=== PATIENT | male | born 1940 | race Caucasian/White ===

== ENCOUNTER 2016-02-12 09:51 | Inpatient (IN) ==
[2016-02-12] MEDS ORDERED: NITROSTAT SL PRN (10:50)
[2016-02-12] MEDS ORDERED: PERCOCET 5-325 PO PRN (10:54)
[2016-02-12 12:08] VITALS: BMI 24.3
[2016-02-12] MEDS: HUMULIN R SUBCUT PRN (12:46)
[2016-02-12] MEDS ORDERED: ACEBUTOLOL HCL 200 MG PO SCH (15:00)
[2016-02-12] MEDS: SECTRAL PO SCH ×2 (15:42→21:04)
[2016-02-12] MEDS: GLUCOPHAGE PO SCH (17:40)
[2016-02-12] MEDS: ASPIRIN EC PO SCH (17:40)
[2016-02-12] MEDS ORDERED: ASPIRIN CHEWABLE PO SCH (21:00)
[2016-02-12] MEDS: FERROUS SULFATE PO SCH (21:04)
[2016-02-13] MEDS: HUMULIN R SUBCUT PRN ×3 (06:21→17:32)
[2016-02-13] MEDS ORDERED: CHOLECALCIFEROL 1000 UNIT PO SCH (09:00)
[2016-02-13] MEDS: ASPIRIN EC PO SCH ×2 (09:03→17:32)
[2016-02-13] MEDS: FERROUS SULFATE PO SCH ×2 (09:03→21:20)
[2016-02-13] MEDS: VITAMIN D PO SCH (09:04)
[2016-02-13] MEDS: CELEXA PO SCH (09:04)
[2016-02-13] MEDS: GLUCOPHAGE PO SCH ×2 (09:04→17:32)
[2016-02-13] MEDS: SECTRAL PO SCH ×3 (09:04→21:20)
[2016-02-13] MEDS: COLACE PO SCH (09:04)
--- NOTE | 2016-02-13 11:27 | RS.PTINEVL ---
Subjective - Patient information Date of Evaluation: 02/13/16 Date of Arrival on Unit: 02/12/16 Admitted From:: Home Usual Living Arrangement: With Spouse Living Arrangement Comments: Pt lives at home with his . Patient has 4 steps to enter the home and does not have a rail. Patient has a rollator walker at home. Home Environment: House, Stairs (few) Surgical History: Knee Replacement Surgical History Comments:: Partial knee replacement on 02/03/2016 Subjective Information/ Patient Comments:: I am doing better now that I am here and have help. - Level of function Prior to this admission, the patient could do the following:: Independent Selfcare, Independent ADL's, Independent Ambulation, Perform Geriatric Physical Therapist/ Cooking, Drive, Participated in Social Activities Outside home, Volunteer/Work Current Level of Function: Dependent Current Equipment Used at Home: FWW Pain Assessement - Location Right Knee Description: Tightness, Acute Intensity: 0 (At rest and with pain medication) Pain Aggravating Factors: ADL's, Exercise/Activity, Standing, Walking, Stair Climbing Pain Alleviating Factors: Medication, Inactivity Effects of Pain: Right knee pain causes instability, higher fall risk when WBing Interventions - Objective Patient Orientation: Person, Place, Time, Situation Observation: Anterior right knee surgical scar present with avelino present. He has errythema present surrounding the incision and it is minimally warm but does not look infected at this time. Range of Motion - ROM Right Lower Extremity AROM: Moderate limitation (Right knee AROM in sitting -15 to 93 degrees.) Muscle Strength - Muscle Strength Right Lower Extremity Strength: Mild Weakness (Right hip and knee gross strength 4/5) Left Lower Extremity Strength: Normal Sensation - Sensation Right Lower Extremity Sensation: Intact/Normal Palpation Palpation Findings: Tenderness (Throughout the right knee region.) Balance - Standing Balance and Reactions Static Standing Balance: Fair Dynamic Standing Balance: Fair Standing Protective Reactions: Delayed Left (Patient requires close SBA to CGA at all times due to fall hx at home and current instability in the right knee joint.), Delayed Right Functional Mobility - Bed Mobility Rolling R/L: Not Tested Scooting: Supervision, Verbal Cues Supine to Sit: Supervision, Verbal Cues Sit to Supine: Supervision, Verbal Cues - Transfers Sit to Stand: CGA, Min Assist, Verbal Cues Stand to Sit: CGA, Verbal Cues Stand Pivot Transfers: CGA, Verbal Cues - Safety Awareness Safety Awareness: Fair (Patient requires close supervision and frequent VCs due to decreased safety technique and task sequencing at times.) Ambulation - Ambulation Weight Bearing Status: WBAT Assistive Device Used: Rolling Walker Orthotic/Prosthetic Device: No Distance: 120' Assistance needed with Ambulation: CGA, 1 person assist, Verbal Cues Gait Deviations: Shuffling gait, Forward posture Factors Affecting Ambulation: Weakness, Decreased ROM, Decreased Safety ( Decreased step length on left with uneven stride and right knee flexion even during stance phase.) Treatment time - Units charged Gait trainin (with FWW and CGA wtih VCs as previously stated.) - Time with patient Total treatment time: 15 Patient Education - Education Patient Education: Body/Joint mechanics, Education of Plan of Care Teaching Recipient: Patient Teaching Methods: Discussion Assessment - Assessment Problem List:: Decreased level of function, Requires training/education, Decreased safety/Risk of falls, Weakness, Pain limits previous level of function Rehab Potential: Good Further Therapy Indicated?: Yes Short Term Goals GOAL #1: Supine to sit independently. Goal to be met by: 02/19/16 GOAL #2: Standing balance fair+ to good- with FWW Goal to be met by: 02/19/16 GOAL #3: Sit to stand with good safety with SBA of one. Goal to be met by: 02/19/16 Shelter Goals GOAL #1: All bed mobility independent. Goal to be met by: 02/25/16 GOAL #2: Transfers independently with good safety. Goal to be met by: 03/24/16 GOAL #3: Amb. with RW household distances with good safety, independently. Goal to be met by: 02/25/16 Plan Plan of Care: Therapeutic EX, Neuromuscular Re-Educ, Therapeutic Activity, Self- Care/Home Management Frequency of Treatment: 1-2 X day, as tolerated Duration of Treatment: 2 Weeks Anticipated Discharge Destination: Home
[2016-02-13 17:55] LABS: BASOPHILS % (AUTO) 0.6 % (0.0-3.0); EOSINOPHILS # (AUTO) 0.2 K/ul (0.0-0.7); EOSINOPHILS % (AUTO) 3.5 % (0.0-7.0); HEMATOCRIT 37.7 % (42.0-52.0); HEMOGLOBIN 12.7 g/dl (14.0-18.0); LYMPHOCYTES # (AUTO) 1.4 K/uL (0.60-3.4); LYMPHOCYTES % (AUTO) 20.6 (10.0-50.0); MEAN CORPUSCULAR HEMOGLOBIN 29.8 pg (27.0-31.0); MEAN CORPUSCULAR HGB CONC 33.7 (31.8-35.4); MEAN CORPUSCULAR VOLUME 88.5 fl (80.0-94.0); MONOCYTES # (AUTO) 0.7 K/uL (0.4-2.0); MONOCYTES % (AUTO) 10.3 (0-10); NEUTROPHILS # (AUTO) 4.4 K/ul (2.0-6.9); PLATELET COUNT 136 10^3/uL (140-440); RED BLOOD COUNT 4.26 10^6/ul (4.70-6.10)
[2016-02-13 20:07] LABS: ADD URINE MICROSCOPIC NO; BILIRUBIN,URINE Negative (NEGATIVE); KETONES,URINE Negative (NEGATIVE); LEUKOCYTE ESTERASE ,URINE Negative (NEGATIVE); NITRITE,URINE Negative (NEGATIVE); PH,URINE 5.5 (5-9); PROTEIN,URINE Negative (NEGATIVE); URINE, BLOOD Negative (NEGATIVE)
[2016-02-14] MEDS: SECTRAL PO SCH ×3 (08:21→21:05)
[2016-02-14] MEDS: CELEXA PO SCH (08:21)
[2016-02-14] MEDS: FERROUS SULFATE PO SCH ×2 (08:21→21:05)
[2016-02-14] MEDS: GLUCOPHAGE PO SCH ×2 (08:21→16:50)
[2016-02-14] MEDS: VITAMIN D PO SCH (08:22)
[2016-02-14] MEDS: ASPIRIN EC PO SCH ×2 (08:22→16:50)
[2016-02-14] MEDS: COLACE PO SCH (08:22)
--- NOTE | 2016-02-14 09:45 | RS.OTINEVL ---
Subjective - Patient information Date of Evaluation: 02/13/16 Date of Arrival on Unit: 02/12/16 Admitted From:: Home Usual Living Arrangement: With Spouse Living Arrangement Comments: Pt lives at home with his . Patient has 4 steps to enter the home and does not have a rail. Patient has a rollator walker at home. Home Environment: House, Stairs (few) Medical History: CVA/TIA, Diabetes Medical History Comments:: Right partial knee replacement. Cdiff Surgical History: Knee Replacement Surgical History Comments:: Partial knee replacement on 02/03/2016 Subjective Information/ Patient Comments:: I need to clean up. You get all this gunk in your hair. Pt said he had not had a shower then he later said he did. 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 Current Level of Function: Partially Dependent Current Equipment Used at Home: RW, Pain Assessment - Pain Pain Score: 0 Side: right Pain Location Body Site: Knee Pain Aggravating Factors: ADL's, Exercise/Activity, Standing, Sitting Pain Alleviating Factors: Medication, Sitting Interventions - Objective Patient Orientation: Person, Place, Situation Observation: Pt has limited extension of the Right knee and edema. Patient is having decreased safety and does not always answer questions correctly. Interventions - ROM Right Upper Extremity AROM: WFL's Left Upper Extremity AROM: Slight limitation - Strength Right Upper Extremity Strength: Mild Weakness Left Upper Extremity Strength: Mild Weakness - Sensation Right Upper Extremity Sensation: Intact/Normal Left Upper Extremity Sensation: Intact/Normal Balance - Sitting Balance Static Sitting Balance: Good Dynamic Sitting Balance: Good - Standing Balance Static Standing Balance: Fair Dynamic Standing Balance: Fair ADL Skills - Self Feeding Self Feeding: Independent - Grooming Grooming: Min Assist - Bathing Bathing UE: CGA Bathing LE: CGA - Dressing Dressing UE: CGA Dressing LE: Min Assist - Toilet Management Toileting Management: Min Assist Functional Mobility - Bed Mobility Rolling R/L: Independent Scooting: Independent Supine to Sit: Independent Sit to Supine: Independent - Transfers Sit to Stand: CGA Stand to Sit: CGA Stand Pivot Transfers: Min Assist Comments:: Pt does not keep his rolling walker with him at all times when he is up and transferring to the chair. - Ambulation Weight Bearing Status: WBAT Assistive Device Used: Rolling Walker Assistance needed with Ambulation: CGA - Safety Awareness Safety Awareness: Poor Additional Treatment Performed - Additional units charged ADL: 10 - Time with patient Total treatment time: 25 Activities Patient Interests:: Watching Television Patient Education Patient Education: Education of diagnosis, Body/Joint mechanics, Home Exercise Program, Home Safety, Education of Plan of Care Teaching Recipient: Patient Teaching Methods: Discussion Assessment Problem List:: Decreased level of function, Requires training/education, Decreased safety/Risk of falls, Weakness Rehab Potential: Good Further Therapy Indicated?: Yes Short Term Goals - Goals GOAL 1: Pt to increase safety of functional transfers to Fair+ Goal to be met by: 02/21/16 Progress towards goal: Partially Met GOAL 2: Pt to be Supervision with sink level ADLS using a RW. Goal to be met by: 02/21/16 GOAL 3: Pt to increase activity tolerance to 15 minutes with rest breaks Goal to be met by: 02/21/16 Usp Goals GOAL 1: Pt to increase safety of functional transfers to Good with RW. Goal to be met by: 02/28/16 GOAL 2: Pt to increase activity tolerance to 20 minutes with rests PRN. Goal to be met by: 02/28/16 GOAL 3: Pt to be modified independent with sink level ADLS . Goal to be met by: 02/28/16 Plan Plan of Care: Therapeutic EX, Neuromuscular Re-Educ, Therapeutic Activity, Self- Care/Home Management Frequency of Treatment: 1-2 X day, as tolerated Duration of Treatment: 2 Weeks Anticipated Discharge Destination: Home
[2016-02-14] MEDS: HUMULIN R SUBCUT PRN ×2 (11:37→17:14)
[2016-02-15] MEDS: HUMULIN R SUBCUT PRN ×4 (05:45→20:03)
[2016-02-15] MEDS: ASPIRIN EC PO SCH ×2 (08:12→16:44)
[2016-02-15] MEDS: CELEXA PO SCH (08:12)
[2016-02-15] MEDS: SECTRAL PO SCH ×3 (08:12→20:04)
[2016-02-15] MEDS: FERROUS SULFATE PO SCH ×2 (08:12→20:04)
[2016-02-15] MEDS: COLACE PO SCH (08:12)
[2016-02-15] MEDS: VITAMIN D PO SCH (08:12)
[2016-02-15] MEDS: GLUCOPHAGE PO SCH ×2 (08:12→16:44)
[2016-02-16] MEDS: HUMULIN R SUBCUT PRN ×2 (05:23→12:08)
[2016-02-16 05:37] VITALS: BP 104/60; TEMP 98
[2016-02-16] MEDS: GLUCOPHAGE PO SCH (09:04)
[2016-02-16] MEDS: FERROUS SULFATE PO SCH (09:04)
[2016-02-16] MEDS: COLACE PO SCH (09:05)
[2016-02-16] MEDS: VITAMIN D PO SCH (09:05)
[2016-02-16] MEDS: CELEXA PO SCH (09:05)
[2016-02-16] MEDS: ASPIRIN EC PO SCH (09:05)
[2016-02-16] MEDS: SECTRAL PO SCH (09:05)
[2016-02-16 11:05] LABS: HEMATOCRIT 43.2 % (42.0-52.0); HEMOGLOBIN 14.5 g/dl (14.0-18.0); MEAN CORPUSCULAR HEMOGLOBIN 29.7 pg (27.0-31.0); MEAN CORPUSCULAR HGB CONC 33.6 (31.8-35.4); MEAN CORPUSCULAR VOLUME 88.5 fl (80.0-94.0); PLATELET COUNT 125 10^3/uL (140-440); RED BLOOD COUNT 4.88 10^6/ul (4.70-6.10); WHITE BLOOD COUNT 6.99 K/ul (4.2-10.2)
[2016-02-16 11:25] LABS: ALBUMIN 3.5 g/dL (3.4-5.0); ALBUMIN/GLOBULIN RATIO 1.09; ANION GAP 15.5; BILIRUBIN,TOTAL 1.41 mg/dL (0.00-1.20); BUN/CREATININE RATIO 16.92; CALCIUM 9.6 mg/dL (8.2-10.2); CREATININE 1.3 mg/dL (0.60-1.10); POTASSIUM 4.5 mmol/L (3.5-5.1); TOTAL PROTEIN 6.7 g/dL (5.8-8.1)
--- NOTE | 2016-04-03 13:31 | PN ---
DATE OF VISIT: 02/13/16 SUBJECTIVE: The patient is alert and ambulatory using a rolling walker with physical therapy. The patient does have tightness on the right knee. The patient denies any pain when he is resting, more so taking if he had taken the pain medication. Pain is triggered and aggravated by the exercises and movement as well as walking. The patient requires close observation according to the therapist and frequent visits. This is due to decreased safety technique and fast sequencing at times. The patient's color is good, not dyspneic or tachypneic and has movement of all extremities. The right knee incision has some redness along the incision lines in both sides but no drainage, no fluctuant area and no crepitus. VITAL SIGNS: Temperature 98.3, pulse 67, blood pressure 134/76, respiratory rate 18 and oxygen saturation 98% on room air. LUNGS: Clear HEART: Good tones and sinus rhythm ABDOMEN: Non-tender. EXTREMITIES: Calf muscles no remarkable tenderness. MTDD
--- NOTE | 2016-04-03 13:40 | PN ---
DATE OF VISIT: 02/14/16 SUBJECTIVE: The patient at 6:00pm on 02/14/16 is alert and oriented times 4, not dyspneic or tachypneic with no significant pain at rest. Temperature 97.7, pulse 63, blood pressure 124/77, respiratory rate 18 and oxygen saturation 96% on room air. Evaluation on 02/13/16 the patient feeds himself, grooms and also bath. The patient did ambulate with a rolling walker. Assistance was needed during the course of ambulation. Problem list was listed as decreased level of function , requires training education, decreased safety, Risks of falls because of weakness, rehab potential good and progress towards goal is partially met at this time. [facility]
--- NOTE | 2016-04-03 13:56 | PN ---
DATE OF VISIT: 02/15/16 SUBJECTIVE: The patient is alert and ambulatory with a rolling walker. VITAL SIGNS: Temperature 98.7, pulse 83, blood pressure 103/62, respiratory rate 18 and oxygen saturation 92% at room air. This patient does not have any lung complaints and this patient's previous oxygen saturation were 97 to 98%. This is probably due to placement. This patient has no symptoms referable to the pulmonary system. EXTREMITIES: No tenderness in the calf muscles. CONDITION: Stable and progressively getting better. MTDD
--- NOTE | 2016-04-03 15:03 | DS ---
DATE OF ADMISSION: 02/12/16 DATE OF DISCHARGE: 02/16/16 PATIENT IDENTIFICATION: The patient is a 75 year old male who was admitted to the hospital by the emergency room on 02/09/16 and was discharged from Acute Care 02/12/16 and then admitted into Transitional Care on the same day 02/12/16. The patient had partial right knee replacement on 02/03/16. The patient was discharged 02/07/16 and subsequent to that discharged on the same day. There was a fall with the patient striking his head against his bed. The patient since that fall had another two episodes of the same. The patient's family was very concerned of the recurrent falls and the possible consequence such as a fracture. The patient was then brought to the emergency room and after evaluation and examination and testing the patient was then admitted. HOSPITAL COURSE: The patient while in the hospital remained alert and oriented, cooperative and cheerful. LUNGS: Clear HEART: Audible and regular with good tones ABDOMEN: Non-tender EXTREMITIES: Right knee has some redness on the each side of the incision but no drainage and no fluctuation and no crepitus. The patient continued to receive rehabilitation as well as occupational. The patient seems to have improved but required more days in the hospital prior to discharge and so the patient was discharged to Acute Care and admitted to Transitional. The patient had a CBC on 02/13/16 and 02/16/16. The patient's plt count was much higher then I had obtained in the previous testing for several years. His plt count 02/13/16 was 136 and 02/16/16 was 125. CBC showed normal electrolytes, CO2 of 28 normal, BUN 22, creatinine 1.30, EGFR 54. This is lower then the Acute admission. This patient no longer has intervenous fluids. Blood sugar was 191. Total Bilirubin is 1.41 which I believe is not significant, probably secondary to non-conjugation. The rest of the chemistries were normal. Urinalysis done on 02/13/16 showed normal results. The patient continued to improve and on the day of discharge was alert and with less pain. He is not dyspneic or tachypneic and his color was good. LUNGS: Clear to auscultation. HEART: Audible and regular with good tones ABDOMEN: No tenderness. EXTREMITIES: The right knee has less swelling and less redness. Appears to have a satisfactory healing. No drainage at the incision. No significant tenderness in the calf muscles to palpation both right and left side. Upper extremities are symmetrical and equal. VITAL SIGNS: Discharge Temperature 98, pulse 71, blood pressure 104/60, respiratory rate 16, oxygen saturation 93% at room air. The patient denied any shortness of breath and no cough and no chest pain. FINAL DIAGNOSES: 1. Generalized weakness, post right partial knee replacement 2. Recurrent falls secondary to generalized weakness 3. Hypertension by history, controlled 4. Coronary artery disease, status post bypass 5. Myelodysplastic syndrome 6. Chronic Thrombocytopenia 7. Type 2, Diabetes Mellitus 8. History of COPD 9. History of Restless leg syndrome 10.Obstructive sleep apnea, diagnosed November 2013. PLAN: 1. This patient is then discharged today and following orders were given. 2. New medication Tradjenta 5mg daily elected because of the borderline renal function, Oxycodone HCL 10mg Q 6 hours PRN take one half of the Oxycodone 10mg and see if this relieves the problem every 6 hours if not can take a full one. 3. Should resume his Acebutolol, Aspirin, Vitamin D, Celexa, Docusate, Ferrous Sulfate and Nitroglycerin sublingually PRN. 4. He is advised to see me 02-21-16 at 2:00pm at the office. 5. Keep the appointment with Dr. Cameron 03/01/16 at 8:10am. 6. Resume medications. 7. Discontinue Glucophage. 8. The patient is to return for continued rehabilitation at [facility]. The patient should do the activities prescribed by Dr. Cameron. 9. Continue to ambulate more frequently at home. 10. Elevate the leg at level of the heart or better above the heart level. MTDD
--- NOTE | 2016-04-04 13:00 | HP ---
BRIEF HISTORY FOR TRANSITIONAL CARE ADMISSION FROM ACUTE. DISCHARGED 02/12/16 AND ADMITTED 02/12/16 TO TRANSITIONAL CARE CHIEF COMPLAINT: Need for continued rehabilitation therapy, as well as occupational. HISTORY OF PRESENT ILLNESS: The patient was admitted to the hospital 02/09/16 because of progressive weakness beginning the day after surgery 02/04/2016. He was discharged 02/07/2016 and subsequent to that discharge had a fall hitting his head on his bed. This patient had a CT scan of the head with no remarkable abnormalities. CT scan of the neck without contrast showed degenerative joint disease. No fracture. Chest x-ray with some abnormalities, but not acute. The patient had a serial CBC and CMP. The cardiac enzymes were normal. The patient at discharge was alert and ambulatory with the use of a walker. He is going to continue rehabilitation, as well as occupational therapy. Past personal history, family history, social history, medication, refer to admission of 02/09/2016. PHYSICAL EXAMINATION: LUNGS: Clear to auscultation in both sides. No rales. HEART: Audible with good tones and mostly regular. ABDOMEN: Flat and soft. LOWER EXTREMITIES: The right knee has some swelling and redness along the incision line with no drainage. No crepitus in the subcutaneous areas. ASSESSMENT: 1. PARTIAL RIGHT KNEE REPLACEMENT 02/03/2016 2. GENERALIZED WEAKNESS, IMPROVED 3. HYPERTENSION, CONTROLLED 4. CORONARY ARTERY DISEASE, STATUS POST BYPASS MTDD
== END 2016-02-16 14:55 | disposition home or self-care (01) | DRG 948 ==
LOC: MEDSURG B 09:51
PROVIDERS: ADMIT General Practice; ATTEND General Practice
DX: R53.1 Weakness (principal); R29.6 Repeated falls; Z96.651 Presence of right artificial knee joint; Z47.1 Aftercare following joint replacement surgery; I25.10 Atherosclerotic heart disease of native coronary artery without angina pectoris; I10 Essential (primary) hypertension; D46.9 Myelodysplastic syndrome, unspecified; D69.6 Thrombocytopenia, unspecified; E11.9 Type 2 diabetes mellitus without complications; J44.9 Chronic obstructive pulmonary disease, unspecified; G25.81 Restless legs syndrome; G47.33 Obstructive sleep apnea (adult) (pediatric); Z95.1 Presence of aortocoronary bypass graft; Z79.84 Long term (current) use of oral hypoglycemic drugs; Z79.899 Other long term (current) drug therapy
CPT/HCPCS: 36415; 80053; 81001; 82550; 82962; 85025; 87493; 97802; 99308; 99315

== ENCOUNTER 2016-02-23 10:00 | Outpatient (RCR) ==
--- NOTE | 2016-02-21 15:46 | RS.OPPTEV2 ---
Date of Note: 02/21/16 Visit #: 1 Date of Evaluation: 02/21/16 Payer Source: MEDICARE Date of Onset/Injury/Change in Status: 02/03/16 Surgery Performed?: Yes (right partial knee replacement) Treatment Diagnosis: Right knee stiffness, gait abnormality History of Condition/Mechanism of Injury:: Patient reports several years of progressive knee pain led him to have surgery. He had his surgery as an Outpatient procedure and returned home. On 02/09/16 he was brought to [facility] via ambulance due to weakness and knee pain. He was in the hospital ~ one week and received Occupational and Physical Therapy. Prior Level of Function.....Patient was independent with: ADL's, Self Care, Work /Vocation, Caregiving, Ambulation/Mobility, Community Integration/Access Functional Limitations: Self Care, ADL's, Sitting, Standing, Bending, Squatting , Ambulation, Community Access/Integration Current Subjective/complaints:: Patient reports right knee pain has been minimal. States he has not taken pain medication for approximately a week. States he has been ambulating in the home without an assistive device. States he does not have pain with weight bearing on the right LE. He uses a rollator in the house at times or if he has to walk long distances. States he is having his avelino removed this afternoon by Dr. Correa. Treatment Side (optional): Right Medical History Medical History: CVA/TIA, Diabetes Medical History Comments:: Right partial knee replacement. Cdiff Smoking Status: Former smoker Hx Home Medications: Pain medication Patient's Goals: His goal is to return to his previous level of function. Pain Assessment - Pain Description Pain Location: right knee Current Pain Intensity: minimal Functional Outcome Measure LE Functional Scale: 10 (10/80=87.5% impairment) Tinetti: 16 - G Codes & Severity Modifier G Codes & Modifier: Mobility current CM. Mobility goal CJ Source of G Code score: LE functional scale Observation - Observation Inspection: Patient presents with 5 inch incision with avelino in place to anterior aspect of right knee. Incision is clean and has no signs of infection. Girth Measurement Lower: Right LE: Most superior aspect of incision 41.5 cm, inferior aspect of incision 36 cm, malleoli 26.5 cm Gait - Gait Pattern Gait Comments: Patient ambulates without an assistive device with slow, cautious gait. Demonstrates decreased stance phase, decreased knee and hip flexion on the right LE. Decreased heel strike on right LE. Knee ROM: Left WFL's Knee Muscle Strength: Left WFL's - Right Knee ROM Right Knee Extension: -8 degrees from full extension Right Knee Flexion: 105 (degrees AROM) Knee ROM Limitations: Soft Tissue Tightness, Pain - Right Knee Strength Right Knee Extension: 4 Good Right Knee Flexion: 4 Good Comments: Right hip 4+/5. Palpation Comments:: Reports no significant tenderness throughout right knee joint. Sensation - Sensation Right Lower Extremity: Intact/Normal Left Lower Extremity: Intact/Normal Balance - Sitting Balance Static Sitting Balance: Good Dynamic Sitting Balance: Good - Standing Balance Static Standing Balance: Fair (+) Dynamic Standing Balance: Fair (+) Interventions - Exercise/Activities/Manual Therapy Exercises/Activities: Patient assisted with right knee flexion and extension. Performed QS, SLR, SAQ, heel slides. Instructed in exercises for home of: QS, SLR, SAQ's, heel slides, and standing HS curls. Total minutes of Exercise: X 16 mins Manual Therapy: NA HOME EXERCISE PROGRAM: QS, SLR, SAQ's, heel slides, and standing HS curls. Advised to perform QS with a towel roll or pillow under the ankle. - Charges Total Direct Minutes: 38 mins Total Treatment Time: 38 mins Procedures billed for this date of service:: KYARA zimmerman, EX Assessment Assessment: Patient presents 2 1/2 weeks s/p right partial knee replacement. He demonstrates limited functional ROM of the right knee and weakness. His overall level of function is limited due to recent surgery. Ambulation is limited due to knee pain, limited ROM, and weakness at the knee joint. He scores himself to be at a 87.5% percent level of impairment per LE functional scale. Shows to be at a high risk for falls from Tinetti Assessment. He demonstrates great potential to return to his prior level of function with skilled therapy for ROM and strengthening. Patient Education: Education of diagnosis, Body/Joint mechanics, Home Exercise Program, Home Safety, Activity Modification, Education of Plan of Care Rehab Potential: Good Short Term Goals Goal #1: Patient independent and compliant with basic HEP. Goal to be met by: 03/06/16 Goal #2: Right knee extension to -2 actively. Goal to be met by: 03/06/16 Goal #3: Right knee active flexion to 115 degrees. Goal to be met by: 03/06/16 Goal #4: Right quad strength 4+/5. Goal to be met by: 03/06/16 Financial Analyst Goals Goal #1: Pt knows to continue HEP to maintain level of function at discharge. Goal to be met by: 03/22/16 Goal #2: Pt to ambulate w/o assistive device w/ minimal gait deviation & good safety Goal to be met by: 03/22/16 Goal #3: Score on LE functional scale improved to <20% impairment. Goal to be met by: 03/22/16 Goal #4: Pt able to perform all selfcare and ADL's without difficulty or knee pain. Goal to be met by: 03/22/16 Plan - Treatment to be Provided Procedures: Therapeutic Exercises, Therapeutic Activity, Gait Training, Patient Education Modalities: Electrical Stimulation, Cryotherapy, Hot Packs - Treatment Plan Frequency: 3 X week Duration: 4 weeks ORDER # VISITS AND/OR THROUGH DATE: 03/22/16 - Treatment Code (1) Knee stiffness Qualifiers: Laterality: right Qualified Description: Knee stiffness, right Qualifier Code(s): (M25.661) Stiffness of right knee, not elsewhere classified (2) Knee pain Qualifiers: Laterality: right Chronicity: acute Qualified Description: Acute pain of right knee Qualifier Code(s): (M25.561) Pain in right knee (3) Aftercare following joint replacement surgery Qualifiers: Joint replacement surgery site: knee Laterality: right Qualified Description: Aftercare following right knee joint replacement surgery Qualifier Code(s): (Z47.1) Aftercare following joint replacement surgery
--- NOTE | 2016-02-23 11:49 | RS.OPPTDN ---
Subjective Date of Note: 02/23/16 Visit #: 2 Date of Evaluation: 02/21/16 Payer Source: MEDICARE Treatment Diagnosis: Right knee stiffness, gait abnormality Current Subjective/complaints:: No c/o,reports doing his exercises at home.He had elevated pain yesterday,possibly due to rainy weather. Pain Assessment - Pain Description Pain Location: right knee Pain Description: Tightness, Dull, Aching Current Pain Intensity: minimal - Treatment Modality: Electrical Stim Unattended Parameters/Method Applied: 20 mins. high volt to R knee,channel 1 @ 135 pv, channel 2 @ 120 pv. Patient Position: Supine - Heat/Cryotherapy Treatment: Cryotherapy (concurrent with e-stim) Interventions - Exercise/Activities/Manual Therapy Exercises/Activities: 20 mins total of ankle pumps,QS,SAQ and heelslides with 3 # ,SLR's,3/15 each.HEP review for knee and gait mechanics.AROM 110,118 with self -stretch.Extension -8,then -5 with quad set and cues given. Total minutes of Exercise: 20 Manual Therapy: NA Total minutes of Manual Therapy: 0 HOME EXERCISE PROGRAM: QS, SLR, SAQ's, heel slides, and standing HS curls. Advised to perform QS with a towel roll or pillow under the ankle. - Charges Total Direct Minutes: 20 Total Treatment Time: 40 Procedures billed for this date of service:: cp,e-stim,ex Assessment: Patient has minimal extension actively due to quad weakness present, but his flexion is progressing well,as he is approx. 3 weeks post-op.He has soft end feel present for flexion and extension.He is ambulating without assistive device today,reports occasionally using his walker at home if needed. Patient Education: Education of diagnosis, Body/Joint mechanics, Home Exercise Program, Home Safety, Activity Modification, Education of Plan of Care Patient demonstrates compliance with HEP?: Yes Short Term Goals Goal #1: Patient independent and compliant with basic HEP. Goal to be met by: 03/06/16 Progress towards Goal:: Progressing Goal #2: Right knee extension to -2 actively. Goal to be met by: 03/06/16 Goal #3: Right knee active flexion to 115 degrees. Goal to be met by: 03/06/16 Progress towards Goal:: Progressing Goal #4: Right quad strength 4+/5. Goal to be met by: 03/06/16 Cleat Feeder Goals Goal #1: Pt knows to continue HEP to maintain level of function at discharge. Goal to be met by: 03/22/16 Goal #2: Pt to ambulate w/o assistive device w/ minimal gait deviation & good safety Goal to be met by: 03/22/16 Progress towards goal: Progressing Goal #3: Score on LE functional scale improved to <20% impairment. Goal to be met by: 03/22/16 Goal #4: Pt able to perform all selfcare and ADL's without difficulty or knee pain. Goal to be met by: 03/22/16 Progress towards goal: Progressing Plan PLAN OF CARE EXPIRES ON:: 03/22/16 ORDER # VISITS AND/OR THROUGH DATE: 03/22/16 PLAN: Progress Exercises
== END 2016-03-14 ==
PROVIDERS: ATTEND Orthopaedic Surgery
DX: M25.661 Stiffness of right knee, not elsewhere classified (principal); M25.561 Pain in right knee; Z47.1 Aftercare following joint replacement surgery

== ENCOUNTER 2016-03-23 08:14 | Outpatient (CLI) ==
[2016-03-23 13:09] LABS: BASOPHILS # (AUTO) 0.1 K/uL (0-0.2); BILIRUBIN,URINE 1+ (NEGATIVE); EOSINOPHILS # (AUTO) 0.2 K/ul (0.0-0.7); EOSINOPHILS % (AUTO) 3.3 % (0.0-7.0); HEMATOCRIT 39.3 % (42.0-52.0); HEMOGLOBIN 13.2 g/dl (14.0-18.0); IMMATURE GRANULOCYTE % (AUTO) 0.2 % (0.0-5.0); KETONES,URINE Negative (NEGATIVE); LEUKOCYTE ESTERASE ,URINE Negative (NEGATIVE); LYMPHOCYTES # (AUTO) 1.2 K/uL (0.60-3.4); LYMPHOCYTES % (AUTO) 23.8 (10.0-50.0); MEAN CORPUSCULAR HEMOGLOBIN 30.4 pg (27.0-31.0); MEAN CORPUSCULAR HGB CONC 33.6 (31.8-35.4); MEAN CORPUSCULAR VOLUME 90.6 fl (80.0-94.0); MONOCYTES # (AUTO) 0.4 K/uL (0.4-2.0); MONOCYTES % (AUTO) 7.6 (0-10); NEUTROPHILS # (AUTO) 3.3 K/ul (2.0-6.9); NEUTROPHILS % (AUTO) 64.1; NITRITE,URINE Negative (NEGATIVE); PH,URINE 5.5 (5-9); PLATELET COUNT 101 10^3/uL (140-440); PROTEIN,URINE Negative (NEGATIVE); RED BLOOD COUNT 4.34 10^6/ul (4.70-6.10); URINE, BLOOD Negative (NEGATIVE); WHITE BLOOD COUNT 5.12 K/ul (4.2-10.2)
[2016-03-23 13:43] LABS: ADD URINE MICROSCOPIC NO
[2016-03-23 13:58] LABS: ALBUMIN 4.1 g/dL (3.4-5.0); ALBUMIN/GLOBULIN RATIO 1.37; ANION GAP 16.1; BILIRUBIN,TOTAL 0.93 mg/dL (0.00-1.20); BUN/CREATININE RATIO 12.31; CALCIUM 9.4 mg/dL (8.2-10.2); CHOL/HDL RATIO 2.5 (4.5-6.4); CREATININE 1.38 mg/dL (0.60-1.10); POTASSIUM 4.1 mmol/L (3.5-5.1); TOTAL PROTEIN 7.1 g/dL (5.8-8.1)
== END 2016-03-23 08:15 | disposition home or self-care (01) ==
LOC: LAB 08:14
PROVIDERS: ATTEND General Practice
DX: E11.49 Type 2 diabetes mellitus with other diabetic neurological complication (principal); R53.83 Other fatigue; D46.9 Myelodysplastic syndrome, unspecified; D69.6 Thrombocytopenia, unspecified; I25.10 Atherosclerotic heart disease of native coronary artery without angina pectoris; Z79.899 Other long term (current) drug therapy
CPT/HCPCS: 36415; 80053; 80061; 81001; 83036; 85025

== ENCOUNTER 2016-06-23 09:32 | Outpatient (CLI) | payer OTHER ==
[2016-06-23 13:19] LABS: EOSINOPHILS # (AUTO) 0.2 K/ul (0.0-0.7); EOSINOPHILS % (AUTO) 4.3 % (0.0-7.0); HEMATOCRIT 41.4 % (42.0-52.0); HEMOGLOBIN 14.1 g/dl (14.0-18.0); IMMATURE GRANULOCYTE % (AUTO) 0.3 % (0.0-5.0); LYMPHOCYTES # (AUTO) 1.2 K/uL (0.60-3.4); LYMPHOCYTES % (AUTO) 30.8 (10.0-50.0); MEAN CORPUSCULAR HEMOGLOBIN 30.1 pg (27.0-31.0); MEAN CORPUSCULAR HGB CONC 34.1 (31.8-35.4); MEAN CORPUSCULAR VOLUME 88.3 fl (80.0-94.0); MONOCYTES # (AUTO) 0.4 K/uL (0.4-2.0); MONOCYTES % (AUTO) 9.3 (0-10); NEUTROPHILS # (AUTO) 2.2 K/ul (2.0-6.9); NEUTROPHILS % (AUTO) 54.3; PLATELET COUNT 93 10^3/uL (140-440); RED BLOOD COUNT 4.69 10^6/ul (4.70-6.10); WHITE BLOOD COUNT 3.96 K/ul (4.2-10.2)
[2016-06-23 13:27] LABS: BILIRUBIN,URINE Negative (NEGATIVE); KETONES,URINE Negative (NEGATIVE); LEUKOCYTE ESTERASE ,URINE Negative (NEGATIVE); NITRITE,URINE Negative (NEGATIVE); PH,URINE 7.5 (5-9); PROTEIN,URINE Negative (NEGATIVE); URINE, BLOOD Negative (NEGATIVE)
[2016-06-23 13:28] LABS: ADD URINE MICROSCOPIC NO
[2016-06-23 14:11] LABS: ALBUMIN/GLOBULIN RATIO 1.29; ANION GAP 13.4; BILIRUBIN,TOTAL 1.27 mg/dL (0.00-1.20); BUN/CREATININE RATIO 9.77; CALCIUM 9.6 mg/dL (8.2-10.2); CHOL/HDL RATIO 2.4 (4.5-6.4); CREATININE 1.33 mg/dL (0.60-1.10); FOLATE 10.8 ng/mL (3.1-20.5); POTASSIUM 4.4 mmol/L (3.5-5.1); TOTAL PROTEIN 7.1 g/dL (5.8-8.1)
== END 2016-06-23 09:33 | disposition home or self-care (01) ==
LOC: LAB 09:32
PROVIDERS: ATTEND General Practice
DX: D46.9 Myelodysplastic syndrome, unspecified (principal); R53.83 Other fatigue; E11.49 Type 2 diabetes mellitus with other diabetic neurological complication; D69.6 Thrombocytopenia, unspecified; I25.10 Atherosclerotic heart disease of native coronary artery without angina pectoris; E29.1 Testicular hypofunction; F32.9 Major depressive disorder, single episode, unspecified; F43.9 Reaction to severe stress, unspecified; N52.9 Male erectile dysfunction, unspecified; R61 Generalized hyperhidrosis; Z79.899 Other long term (current) drug therapy
CPT/HCPCS: 36415; 80053; 80061; 81001; 82607; 82746; 83036; 85025

== ENCOUNTER 2016-09-21 08:30 | Outpatient (CLI) ==
[2016-09-21 12:40] LABS: BASOPHILS # (AUTO) 0.1 K/uL (0-0.2); BASOPHILS % (AUTO) 1.2 % (0.0-3.0); EOSINOPHILS # (AUTO) 0.2 K/ul (0.0-0.7); EOSINOPHILS % (AUTO) 4.7 % (0.0-7.0); HEMATOCRIT 38.5 % (42.0-52.0); HEMOGLOBIN 13.3 g/dl (14.0-18.0); IMMATURE GRANULOCYTE % (AUTO) 0.2 % (0.0-5.0); LYMPHOCYTES # (AUTO) 1.2 K/uL (0.60-3.4); LYMPHOCYTES % (AUTO) 28.4 (10.0-50.0); MEAN CORPUSCULAR HEMOGLOBIN 30.9 pg (27.0-31.0); MEAN CORPUSCULAR HGB CONC 34.5 (31.8-35.4); MEAN CORPUSCULAR VOLUME 89.5 fl (80.0-94.0); MONOCYTES # (AUTO) 0.4 K/uL (0.4-2.0); MONOCYTES % (AUTO) 9.3 (0-10); NEUTROPHILS # (AUTO) 2.4 K/ul (2.0-6.9); NEUTROPHILS % (AUTO) 56.2; PLATELET COUNT 85 10^3/uL (140-440)
[2016-09-21 12:42] LABS: BILIRUBIN,URINE Negative (NEGATIVE); KETONES,URINE Negative (NEGATIVE); LEUKOCYTE ESTERASE ,URINE Negative (NEGATIVE); NITRITE,URINE Negative (NEGATIVE); PROTEIN,URINE Negative (NEGATIVE); URINE, BLOOD Negative (NEGATIVE)
[2016-09-21 12:46] LABS: ADD URINE MICROSCOPIC NO
[2016-09-21 12:57] LABS: ALBUMIN 3.9 g/dL (3.4-5.0); ALBUMIN/GLOBULIN RATIO 1.39; ANION GAP 16.2; BILIRUBIN,TOTAL 1.19 mg/dL (0.00-1.20); BUN/CREATININE RATIO 11.11; CALCIUM 9.4 mg/dL (8.2-10.2); CHOL/HDL RATIO 2.2 (4.5-6.4); CREATININE 1.26 mg/dL (0.60-1.10); POTASSIUM 4.2 mmol/L (3.5-5.1); TOTAL PROTEIN 6.7 g/dL (5.8-8.1)
== END 2016-09-21 08:31 | disposition home or self-care (01) ==
LOC: LAB 08:30
PROVIDERS: ATTEND General Practice
DX: D69.6 Thrombocytopenia, unspecified (principal); D46.9 Myelodysplastic syndrome, unspecified; R53.83 Other fatigue; R61 Generalized hyperhidrosis; N52.9 Male erectile dysfunction, unspecified; E29.1 Testicular hypofunction; F32.9 Major depressive disorder, single episode, unspecified; F43.9 Reaction to severe stress, unspecified; E11.49 Type 2 diabetes mellitus with other diabetic neurological complication; I25.10 Atherosclerotic heart disease of native coronary artery without angina pectoris; Z79.899 Other long term (current) drug therapy
CPT/HCPCS: 36415; 80053; 80061; 81001; 83036; 85025

== ENCOUNTER 2016-09-29 07:23 | Outpatient (CLI) ==
--- NOTE | 2016-09-29 08:50 | US ---
EXAM: Left lower extremity venous Doppler HISTORY: Concern for DVT with left lower extremity edema and prior pulmonary embolism. COMPARISON: Venous Doppler 02/10/2016 TECHNIQUE: Sonographic and Doppler evaluation of the left lower extremity vessels from the common f emoral through the anterior tibial veins were obtained. Augmentation and compression techniques wer e also performed. FINDINGS: There is spontaneous Doppler flow seen in the left lower extremity veins from the common femoral through the anterior tibial veins. There is normal compression and augmentation throughout the lower extremity veins. There is no visualized reflux. Sonographic appearance of the soft tissu es are unremarkable. IMPRESSION: No left lower extremity thrombus
== END 2016-09-29 07:24 ==
LOC: RAD 07:23
PROVIDERS: ATTEND General Practice
DX: R60.0 Localized edema (principal); E29.1 Testicular hypofunction; R53.83 Other fatigue; Z12.5 Encounter for screening for malignant neoplasm of prostate
CPT/HCPCS: 36415; 84402

== ENCOUNTER 2017-01-18 13:02 | Outpatient (CLI) ==
[2017-01-18 13:45] LABS: EOSINOPHILS # (AUTO) 0.4 K/ul (0.0-0.7); EOSINOPHILS % (AUTO) 9.6 % (0.0-7.0); HEMATOCRIT 39.3 % (42.0-52.0); HEMOGLOBIN 13.1 g/dl (14.0-18.0); IMMATURE GRANULOCYTE % (AUTO) 0.2 % (0.0-5.0); LYMPHOCYTES # (AUTO) 1.1 K/uL (0.60-3.4); LYMPHOCYTES % (AUTO) 26.8 (10.0-50.0); MEAN CORPUSCULAR HEMOGLOBIN 29.9 pg (27.0-31.0); MEAN CORPUSCULAR HGB CONC 33.3 (31.8-35.4); MEAN CORPUSCULAR VOLUME 89.7 fl (80.0-94.0); MONOCYTES # (AUTO) 0.4 K/uL (0.4-2.0); MONOCYTES % (AUTO) 9.3 (0-10); NEUTROPHILS # (AUTO) 2.2 K/ul (2.0-6.9); NEUTROPHILS % (AUTO) 53.1; PLATELET COUNT 92 10^3/uL (140-440); RED BLOOD COUNT 4.38 10^6/ul (4.70-6.10); WHITE BLOOD COUNT 4.07 K/ul (4.2-10.2)
[2017-01-18 13:50] LABS: BILIRUBIN,URINE Negative (NEGATIVE); KETONES,URINE Negative (NEGATIVE); LEUKOCYTE ESTERASE ,URINE Negative (NEGATIVE); NITRITE,URINE Negative (NEGATIVE); PROTEIN,URINE Negative (NEGATIVE); URINE, BLOOD Negative (NEGATIVE)
[2017-01-18 13:51] LABS: ADD URINE MICROSCOPIC NO; ALBUMIN 3.7 g/dL (3.4-5.0); ALBUMIN/GLOBULIN RATIO 1.23; ANION GAP 13.5; BILIRUBIN,TOTAL 1.04 mg/dL (0.00-1.20); BUN/CREATININE RATIO 10.92; CALCIUM 9.8 mg/dL (8.2-10.2); CHOL/HDL RATIO 2.4 (4.5-6.4); CREATININE 1.19 mg/dL (0.60-1.10); POTASSIUM 4.5 mmol/L (3.5-5.1); TOTAL PROTEIN 6.7 g/dL (5.8-8.1)
== END 2017-01-18 13:03 | disposition home or self-care (01) ==
LOC: LAB 13:02
PROVIDERS: ATTEND General Practice
DX: E11.49 Type 2 diabetes mellitus with other diabetic neurological complication (principal); Z79.899 Other long term (current) drug therapy
CPT/HCPCS: 36415; 80053; 80061; 81001; 83036; 85025

== ENCOUNTER 2017-05-15 14:23 | Outpatient (CLI) | payer OTHER | END 2017-05-15 14:24 | disposition home or self-care (01) | LOC: FCC-LAB 14:23 | PROVIDERS: ATTEND General Practice | DX: E11.49 Type 2 diabetes mellitus with other diabetic neurological complication (principal); I25.10 Atherosclerotic heart disease of native coronary artery without angina pectoris; D46.9 Myelodysplastic syndrome, unspecified; D69.6 Thrombocytopenia, unspecified; E34.9 Endocrine disorder, unspecified; Z79.899 Other long term (current) drug therapy | CPT/HCPCS: 36415; 80053; 80061; 81001; 83036; 85025 ==

== ENCOUNTER 2017-05-22 17:40 | Outpatient (CLI) | END 2017-05-22 17:41 | disposition home or self-care (01) | LOC: FCC-LAB 17:40 | PROVIDERS: ATTEND General Practice | DX: D69.6 Thrombocytopenia, unspecified (principal) | CPT/HCPCS: 82272 ==

== ENCOUNTER 2017-09-14 12:17 | Outpatient (CLI) | END 2017-09-14 12:18 | disposition home or self-care (01) | LOC: FCC-LAB 12:17 | PROVIDERS: ATTEND General Practice | DX: D69.6 Thrombocytopenia, unspecified (principal); E11.49 Type 2 diabetes mellitus with other diabetic neurological complication; D46.9 Myelodysplastic syndrome, unspecified; I25.10 Atherosclerotic heart disease of native coronary artery without angina pectoris; R79.89 Other specified abnormal findings of blood chemistry; Z12.5 Encounter for screening for malignant neoplasm of prostate; Z79.899 Other long term (current) drug therapy | CPT/HCPCS: 36415; 80053; 80061; 81001; 83036; 85025; 87086; 87186 ==

== ENCOUNTER 2017-09-19 12:12 | Outpatient (CLI) | END 2017-09-19 12:13 | disposition home or self-care (01) | LOC: FCC-LAB 12:12 | PROVIDERS: ATTEND General Practice | DX: R74.8 Abnormal levels of other serum enzymes (principal); R82.90 Unspecified abnormal findings in urine | CPT/HCPCS: 36415; 81001; 83625 ==

== ENCOUNTER 2017-09-20 07:14 | Outpatient (CLI) ==
--- NOTE | 2017-09-20 09:14 | US ---
EXAM: Ultrasound abdomen complete. HISTORY: Abnormal liver function tests COMPARISON: CT 07/09/2013 TECHNIQUE: Abdominal, real time with image documentation: Complete. FINDINGS: Liver: Increased parenchymal echogenicity with coarsening of the echotexture pattern. No intra hepatic biliary dilatation. Portal venous flow is normal direction. Gallbladder: Absent. Common bile duct: 0.5 cm. Pancreas: Visualized portions are unremarkable. Spleen: Normal, length 12.9 cm. Right kidney: 11.6 cm length. No hydronephrosis. Left kidney: 9.4 cm in length. No hydronephrosis. Aorta: Visualized portions are normal in caliber. IVC: Visualized portions are normal in caliber. Images of the bladder and prostate demonstrate no localized abnormality. IMPRESSION: Fatty infiltration of the liver.
== END 2017-09-20 07:15 ==
LOC: RAD 07:14
PROVIDERS: ATTEND General Practice
DX: R74.8 Abnormal levels of other serum enzymes (principal)

== ENCOUNTER 2017-12-21 15:40 | Outpatient (CLI) | payer OTHER | END 2017-12-21 15:41 | disposition home or self-care (01) | LOC: RHC-LAB 15:40 | PROVIDERS: ATTEND General Practice | DX: E11.49 Type 2 diabetes mellitus with other diabetic neurological complication (principal); Z79.899 Other long term (current) drug therapy | CPT/HCPCS: 36415; 80061; 81001; 85025 ==

== ENCOUNTER 2018-04-19 10:27 | Outpatient (CLI) | END 2018-04-19 10:28 | disposition home or self-care (01) | LOC: RHC-LAB 10:27 | PROVIDERS: ATTEND General Practice | DX: E11.49 Type 2 diabetes mellitus with other diabetic neurological complication (principal); D69.6 Thrombocytopenia, unspecified; I25.10 Atherosclerotic heart disease of native coronary artery without angina pectoris; Z79.899 Other long term (current) drug therapy | CPT/HCPCS: 36415; 80053; 80061; 81001; 83036; 85025 ==

== ENCOUNTER 2018-05-01 13:56 | Outpatient (CLI) | payer OTHER | END 2018-05-01 13:57 | disposition home or self-care (01) | LOC: CAR 13:56 | PROVIDERS: ATTEND General Practice | DX: I49.9 Cardiac arrhythmia, unspecified (principal) | CPT/HCPCS: 93005; 93010 ==

== ENCOUNTER 2018-05-14 08:52 | Outpatient (CLI) ==
--- NOTE | 2018-05-15 14:29 | HOLTER ---
PATIENT INFORMATION AND COMMENTS Attending Physician: DR. RONNIE STYLES Indications: PVC'S __ Patient Medications: ACEBUTOLOL, CITALOPRAM, SIMVASTATIN, NITROSTAT, ASA __ Pre-procedure Summary: Protocol: Standard Heart Rate Started: 05/14/18907 Minimum: 53 BPM Weight: 188 LBS Ended: 05/15/18906 Maximum: 154 BPM Height: 74" Duration: 24 HOURS Average: 68 BPM _ INTERPRETATIONS/OBSERVATIONS: 1. BASIC RHYTHM: SINUS RATE 50 BPM TO 150 BPM, AVERAGE 70 BPM 2. SHORT RUNS OF SVT, 3 TO 6 BEATS (3 TO 4) NOTED 3. FREQUENT PVC'S--10% OF BEATS SCANNED--FEW COUPLETS AND SALVOES 4. NO ST-T WAVE CHANGES FROM BASELINE 5. ACTIVITY LOG NOT MAINTAINED MTDD
== END 2018-05-14 08:53 | disposition home or self-care (01) ==
LOC: CAR 08:52
PROVIDERS: ATTEND General Practice
DX: I49.3 Ventricular premature depolarization (principal)
CPT/HCPCS: 93227

== ENCOUNTER 2018-05-17 12:57 | Outpatient (CLI) | END 2018-05-17 12:58 | disposition home or self-care (01) | LOC: RHC-LAB 12:57 | PROVIDERS: ATTEND General Practice | DX: I49.9 Cardiac arrhythmia, unspecified (principal) | CPT/HCPCS: 36415 ==

== ENCOUNTER 2018-06-09 08:40 | Emergency (ER) | payer OTHER ==
[2018-06-09 08:48] VITALS: TEMP 98.1; BMI 24.2
--- NOTE | 2018-06-09 09:08 | CT ---
EXAM: CT scan of the head without contrast HISTORY: Right-sided weakness TECHNIQUE: Helical imaging of the head was performed without contrast. 5 mm thin axial images and c oronal and sagittal images were provided for interpretation. Comparison CT scan of the head without contrast dated 02/09/2016. FINDINGS: The lateral ventricles and cortical sulci are prominent from atrophy. No acute hemorrhage s are seen. There is no mass effect. The basal cisterns are patent. Low density changes are seen w ithin the supratentorial white matter. The paranasal sinuses and mastoid air cells are clear. The c alvarium appears normal. IMPRESSION: No acute intracranial abnormalities are seen. Mild chronic small vessel ischemic changes seen within the supratentorial white matter. Mild cerebral atrophy.
[2018-06-09 10:02] VITALS: BP 144/80
--- NOTE | 2018-06-09 10:34 | ED.PDOC ---
General ED Provider: Dr. NUNO KENNEDY Chief Complaint: Stroke Stated Complaint: ON THE MORNING OF THE PRESENTATION THE PT HAD A SUDDEN OSET OF RIGHT ARM/LEG , WEAKNESS. PT COULD NOT WALK PROPERLY. UPON ARRIVAL WAS NOT HAVING A SPEECH PROBLEM HE WAS AOX3 ABLE EXTEND BOTH ARM AGANIST THE GRAVITY AND HIS RIGHT WAS NORMAL. Time Seen by Physician: 09:00 Mode of Arrival: Wheelchair Information Source: Patient, Family Primary Care [facility] Nursing and Triage Documentation Reviewed and Agree: Yes Does patient meet sepsis criteria?: No System Inflammatory Response Syndrome: Not Applicable Sepsis Protocol: For patient's 13 years and over: Temp is 96.8 and below OR 101 and greater Pulse >90 BPM Resp >20/minute Acutely Altered Mental Status Are patient's symptoms suggestive of a new infection, such as: -Pneumonia -Skin, Soft Tissue -Endocarditis -UTI -Bone, Joint Infection -Implantable Device -Acute Abdominal Infection -Wound Infection -Meningitis -Blood Stream Catheter Infection -Unknown Review of Systems - Review Of Systems Constitutional: Reports: No symptoms Eyes: Reports: No symptoms Ears, Nose, Mouth, Throat: Reports: No symptoms Respiratory: Reports: No symptoms Cardiac: Reports: No symptoms GI: Reports: No symptoms : Reports: No symptoms Musculoskeletal: Reports: No symptoms Skin: Reports: No symptoms Neurological: Reports: No symptoms Endocrine: Reports: No symptoms Hematologic/Lymphatic: Reports: No symptoms All Other Systems: Reviewed and Negative Past Medical History - Past Medical History Endocrine: Reports: Dyslipidemia Cardiovascular: Reports: None Respiratory: Reports: None Hematological: Reports: None Gastrointestinal: Reports: None Genitourinary: Reports: None Neuro/Psych: Reports: None Musculoskeletal: Reports: None Cancer: Reports: None - Surgical History General Surgical History: Reports: None - Family History Family History: Reports: None - Social History Smoking Status: Former smoker Hx Substance Use: No Alcohol Screening: None Physical Exam - Physical Exam Appearance: Well-appearing, No pain distress, Well-nourished Eyes: BELEN, EOMI, Conjunctiva clear ENT: Ears normal, Nose normal, Oropharynx normal Respiratory: Airway patent, Breath sounds clear, Breath sounds equal, Respirations nonlabored Cardiovascular: RRR, Pulses normal, No rub, No murmur GI/: Soft, Nontender, No masses, Bowel sounds normal, No Organomegaly Musculoskeletal: Normal strength, ROM intact, No edema, No calf tenderness Skin: Warm, Dry, Normal color Neurological: Sensation intact, Motor intact, Reflexes intact, Cranial nerves intact, Alert, Oriented Psychiatric: Affect appropriate, Mood appropriate - NIH Stroke Scale 1a. Level of Consciousness: 0=Alert and keenly responsive 1c. Level of Consciousness Commands: 0=Performs two tasks correctly 2. Best Gaze: 0=Normal 3. Visual: 0=No visual loss 4. Facial Palsy: 0=Normal 5a. Motor Left Arm: 0=No drift,arm holds 90 degrees for 10 sec., leg 30 degrees for 5 sec. 5b. Motor Right Arm: 0=No drift,arm holds 90 degrees for 10 sec., leg 30 degrees for 5 sec. 6a. Motor Left Le=No drift,arm holds 90 degrees for 10 sec., leg 30 degrees for 5 sec. 6b. Motor Right Le=No drift,arm holds 90 degrees for 10 sec., leg 30 degrees for 5 sec. 7. Limb Ataxia: 0=Absent 8. Sensory: 0=Normal 9. Best Language: 0=No aphasia 10. Dysarthria: 0=Normal 11. Extincion and Inattention: 0=Normal Stroke Scale Total: 0 Re-Evaluation - Re-Evaluation Time of Re-Evaluation: 10:42 Status: Improved Vital Signs Stable: Yes Pain Level: 0 Appearance: NAD Lungs: Clear Skin: Warm and Dry Neuro: Alert and Oriented X3 CV: RRR Additional Comments: NO NEURO DEFICITS SPOKE TO THE NEUROLOGIST Physician Notification - Case Discussed Physician Notified: SELENE POLANCO Time of Notification: 10:41 (ACCEPTED AND REQUESTED I SPEAK TO HOSPITALIST) Critical Care Note - Critical Care Note Total Time (mins): 0 Course - Course Hematology/Chemistry: 06/09/18 08:50 06/09/18 08:50 Orders, Labs, Meds: Lab Review 06/09/18 06/09/18 06/09/18 08:50 08:50 08:50 WBC 4.41 RBC 4.64 L Hgb 13.9 L Hct 41.4 L MCV 89.2 MCH 30.0 MCHC 33.6 RDW Coeff of Anders 13.2 Plt Count 91 L Immature Gran % (Auto) 0.2 Neut % (Auto) 60.9 Lymph % (Auto) 23.6 Carolina % (Auto) 9.8 Eos % (Auto) 5.0 Baso % (Auto) 0.5 Immature Gran # (Auto) 0.0 Neut # (Auto) 2.7 Lymph # (Auto) 1.0 Carolina # (Auto) 0.4 Eos # (Auto) 0.2 Baso # (Auto) 0.0 PT 10.5 INR 1.05 APTT 23.4 L Sodium 135.9 Potassium 4.81 Chloride 102.0 Carbon Dioxide 26.2 Anion Gap 12.51 BUN 15.0 Creatinine 1.12 H Estimated GFR (MDRD) 63.00 BUN/Creatinine Ratio 13.39 Glucose 278.3 H Calcium 9.14 Total Bilirubin 1.23 AST 22.8 ALT 20.1 Alkaline Phosphatase 119.6 H Total Creatine Kinase 78.9 Troponin I < 0.012 Total Protein 6.59 Albumin 4.36 Globulin 2.23 Albumin/Globulin Ratio 1.95 Orders Category Date Time Status EKG-(ED ONLY) Stat CARDIO 06/09/18 08:45 Completed ED IV/MEDIPORT/POWERPORT .ONCE EMERGENCY 06/09/18 08:45 Active CBC W/ AUTO DIFF Stat LAB 06/09/18 08:50 Completed COMPREHENSIVE METABOLIC PANEL Stat LAB 06/09/18 08:50 Completed CREATINE KINASE Stat LAB 06/09/18 08:50 Completed PARTIAL THROMBOPLASTIN TIME Stat LAB 06/09/18 08:50 Completed PT WITH INR Stat LAB 06/09/18 08:50 Completed TROPONIN I Stat LAB 06/09/18 08:50 Completed 0.9 % Sodium Chloride [Saline Flush] MEDS 06/09/18 08:44 Active 1 syr IVF PRN PRN CT HEAD W/O CONTRAST Stat RADS 06/09/18 08:44 Completed Medications Generic Name Dose Route Start Last Admin Trade Name Freq PRN Reason Stop Dose Admin Sodium Chloride 1 syr 06/09/18 08:44 Saline Flush IVF PRN PRN To flush IV Vital Signs: Temp Pulse Resp BP Pulse Ox 06/09/18 10:01 65 20 144/80 H 95 06/09/18 08:42 98.1 F 73 18 193/96 H 98 Departure - Departure Time of Disposition: 10:43 Disposition: TSF SHORT-TRM HOSP Discharge Problem: TIA (transient ischemic attack) Instructions: Transient Ischemic Attack (ED) Condition: Good Pt referred to PMD for follow-up: Yes IPMP verified?: No Additional Instructions: Please call your Family Physician as soon as possible to schedule a follow-up appointment. Allergies/Adverse Reactions: Allergies No Known Allergies Allergy (Verified 06/09/18 08:48) Home Medications: Ambulatory Orders Nitroglycerin [Nitrostat] 0.4 mg SL Q5MIN X 3 DOSES PRN #30 tab-cap 12/03/14 Ferrous Sulfate 324 mg PO BID 05/13/15 Cholecalciferol (Vitamin D3) [D3-2000] 1,000 unit PO DAILY 02/09/16 Docusate Sodium 100 mg PO DAILY 02/09/16 Linagliptin [Tradjenta] 5 mg PO DAILY #30 tablet 02/16/16 Oxycodone HCl 10 mg PO Q6H PRN #15 tablet 02/16/16 Acebutolol HCl 400 mg PO BID #180 tab-cap 09/19/17 Salvatore's Wort 300 mg PO TID 05/01/18 Super Beta Prostate BID 05/01/18
== END 2018-06-09 11:25 | disposition short-term general hospital (02) ==
LOC: ED 08:40
DX: G45.9 Transient cerebral ischemic attack, unspecified (principal); E78.5 Hyperlipidemia, unspecified; Z79.899 Other long term (current) drug therapy
CPT/HCPCS: 36415; 80053; 82550; 84484; 85025; 85610; 85730; 93005; 93010; 99285

== ENCOUNTER 2018-06-09 11:30 | Outpatient (CLI) ==
[2018-06-09 08:48] VITALS: BMI 24.2
== END 2018-06-09 11:53 | disposition short-term general hospital (02) ==
LOC: AMBL 11:30
PROVIDERS: ATTEND Internal Medicine
DX: G45.9 Transient cerebral ischemic attack, unspecified (principal); I49.9 Cardiac arrhythmia, unspecified

== ENCOUNTER 2018-07-19 06:53 | Outpatient (CLI) | payer OTHER | END 2018-07-19 06:54 | disposition home or self-care (01) | LOC: LAB 06:53 | PROVIDERS: ATTEND General Practice | DX: G45.9 Transient cerebral ischemic attack, unspecified (principal); E11.49 Type 2 diabetes mellitus with other diabetic neurological complication; I73.9 Peripheral vascular disease, unspecified; D69.6 Thrombocytopenia, unspecified; Z79.899 Other long term (current) drug therapy | CPT/HCPCS: 36415; 80053; 80061; 81001; 83036; 84443; 85025 ==